=== PATIENT | male | born 1960 | race Caucasian/White ===

== ENCOUNTER 2021-11-12 05:01 | Inpatient (IN) | payer OTHER ==
[~2021-11-12] VITALS: Ht 180.3 cm; Wt 118.8 kg
[2021-11-12 05:25] VITALS: BP 174/87
[2021-11-12] MEDS ORDERED: HEPARIN 25,000UTS/250ML PREMIX 250 ML IV PRN (06:15)
[2021-11-12] MEDS ORDERED: HEPARIN for IV BOLUS 10,000 UNIT/10 ML VIAL. IV PRN (06:15)
[2021-11-12] MEDS ORDERED: FURO40TA4 PO (06:18)
[2021-11-12] MEDS ORDERED: AMLO-187 PO (06:18)
[2021-11-12] MEDS ORDERED: METO-239 PO (06:22)
[2021-11-12] MEDS ORDERED: ACET325T21 PO (06:22)
[2021-11-12] MEDS ORDERED: IBUP-1007 PO (06:22)
[2021-11-12] MEDS ORDERED: ASPI-424 PO (06:22)
[2021-11-12] MEDS ORDERED: ANTI-COAG MONITOR BY PHARMACY. MC PRN (06:45)
[2021-11-12 07:00] VITALS: BP 136/74
[2021-11-12] MEDS ORDERED: ACETAMINOPHEN 325 MG TABLET. PO PRN (09:45)
--- NOTE | 2021-11-12 09:50 | PDOC2 ---
RONALDO RINALDI [employer] POLICE OFFICER 11/12/21 0950: CARDIAC CONSULT DATE OF CONSULT Date of Consult DATE: 11/12/21 TIME: 09:45 REASON FOR CONSULT Reason for Consult: CP, elevated trop REFERRING PHYSICIAN Referring Physician: Dr. Arriola SOURCE Source: Chart review, Patient HISTORY OF PRESENT ILLNESS HISTORY OF PRESENT ILLNESS This is a 60 yo male who initially presented to [facility] secondary to chest heaviness/pressure and shortness of breath. Troponin noted to be elevated at 191 and then 337. Heparin gtt was initiated. Patient was transferred to [facility] for further evaluation and treatment. Patient reports development of tightness/pressure in his central chest yesterday evening around 8pm while he was working in his garage. Was not exerting himself when patient developed. Was associated with shortness of breath and diaphoresis. No dizziness or nausea/vomiting. Pain did not radiated. Symptoms lasted about 15 mins and then improved. Reports he went inside to make dinner and pain returned. Pain again resided without intervention. Pain returned again and was more intense so he decided to come to the ED for further evaluation and treatment. Patient denies experiencing pain similar to this previously. No prior h/o CAD. Patient does reports having COVID PNA last fall reports he hasn't been quite the same since that point. Was initially discharge home from the hospital with oxygen, but not longer requires it. Oxygen saturation is presently 99% on RA. PAST MEDICAL HISTORY Cardiovascular: HTN Pulmonary: COPD, Other (COVID PNA) Musculoskeletal: Osteoarthritis PAST SURGICAL HISTORY Past Surgical History: Appendectomy, Tonsillectomy FAMILY HISTORY Family History: Heart Disease (father ) SOCIAL HISTORY Smoke: No ALCOHOL: none Drugs: None Lives: with Family ALLERGIES ALLERGIES: Coded Allergies: No Known Drug Allergies (Unverified , 11/12/21) ROS Review of System 14 point ROS conducted with pertinent positives noted above in HPI PHYSICAL EXAM General: Alert, Oriented X3, Cooperative, No acute distress HEENT: Atraumatic Lungs: Clear to auscultation Heart: Regular rate Abdomen: Soft, No tenderness Extremities: No edema, Normal pulses Skin: No significant lesion Neuro: Normal speech, Sensation intact Psych/Mental Status: Mental status NL, Mood NL MUSCULOSKELETAL: Osteoarthritic changes both hands VITALS/I&O VITALS/I&O: Vital Signs Date Time Temp Pulse Resp B/P (MAP) Pulse Ox O2 Delivery O2 Flow Rate FiO2 5/9/22 07:50 Room Air 11/12/21 07:00 97.4 71 20 136/74 (94) 97 97.4 ASSESSMENT/PLAN ASSESSMENT/PLAN 1. Chest pain, concerns for UA 2. NSTEMI; trop highest 337. EKG shows ST with nonspecific ST/T changes. on heparin gtt 3. Hypertension; now controlled 4. Obesity Recommendations Trend troponin Continue heparin ASA Lipids Echocardiogram Resume home antiHTN therapy Given symptomatology and risk factors in the setting of NSTEMI, recommend cardiac catheterization with possible PCI. R/b/a discussed with patient and he is agreeable to proceed Keep NPO Will proceed with C this afternoon. FREDRICK MONSON MD 11/12/216: CARDIAC CONSULT ASSESSMENT/PLAN ASSESSMENT/PLAN Patient seen and examined. Agree with PLASTICS AND COMPOSITES INSPECTOR's assessment and plan. NSTEMI - plan for cardiac cath and possible PCI Continue heparin gtt per protocol 2D echo showed normal LVF Thank you for your consultation RONALDO RINALDI APRN November 12, 2021 09:50 FREDRICK MONSON MD November 12, 2021 18:16
--- NOTE | 2021-11-12 10:27 | HP ---
DATE OF SERVICE: 11/12/2021 ADMIT DATE: 11/12/2021 HISTORY OF PRESENT ILLNESS: The patient is a 60-year-old male patient who presented to the Emergency Room with complaint of shortness of breath and chest heaviness. The patient had these feeling intermittently since around dinnertime. He felt like he was short of breath and just could not catch his air. This was accompanied by a pressure sensation in his chest at its worst, it was about 8/10 in severity. By the time he arrived to the Emergency Room, it was 2/10 and he does not feel short of breath. The patient has been having complications from COVID-19 for several months, has significantly decreased exercise tolerance and is unable to work. Today on the day, he arrived to the Emergency Room, he apparently has had about 4 episodes of chest pain that lasted variable length of time associated with shortness of breath. The last one was treated also with severe diaphoresis. It was around 10:30 and his son brought him to the Emergency Room around 11:30. As his symptoms are getting worse, he decided to come to the Emergency Room for further evaluation. He has never had symptoms like this before. He was extensively investigated in the Emergency Room and has had an EKG, which showed that he was in sinus tachycardia with a heart rate of [address] segment elevation. His CT scan of the chest with contrast showed no evidence of pulmonary embolism. There is no thoracic aortic dissection. The great vessels are normal in caliber. She also has no pleural abnormality. The central airways are patent. There are peripheral linear opacities in the bilateral lungs that are nonspecific. His 2 sets of cardiac enzymes showed that his first troponin I high sensitivity was 191 and the second one was 337 and therefore, the patient was transferred to [facility] with non-ST segment elevation myocardial infarction, was started on heparin drip and we did consult the truck headlight assembler for further evaluation and treatment. PAST MEDICAL HISTORY: Significant for hypertension. He had also COVID-19 pneumonia and acute hypoxic respiratory failure in 01/2021 and since then he has exercise intolerance and shortness of breath and has not been able to work since then. He denied any other medical problems. PAST SURGICAL HISTORY: Significant for appendectomy and vasectomy. ALLERGIES: He has no known drug allergies. MEDICATIONS: He is currently on the following medications: He is on metoprolol succinate 25 mg once a day, amlodipine besylate 10 mg once a day, aspirin 81 mg once a day, ibuprofen 600 mg every 6 hours, acetaminophen 650 mg every 6 hours and furosemide 40 mg daily. FAMILY HISTORY: His father at age of 63 because of myocardial infarction. Mother in her 70s because of lung cancer. He has 1 adopted sister. No brothers. SOCIAL HISTORY: He is , has 1 son and 2 daughters. He never smoked, does not drink alcohol or recreational drugs. 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 He has not been able to work since he had COVID last year. REVIEW OF SYSTEMS: As per history of present illness. PHYSICAL EXAMINATION: GENERAL: On arrival to the Emergency Room, he was well-developed, well-nourished, morbidly obese, in no acute distress. There is no pallor, jaundice, cyanosis or thyromegaly. No jugular venous distention. No lower limb edema. VITAL SIGNS: His heart rate on arrival was 115, blood pressure was 160/97, temperature 97.7, respiratory rate was 18 and oxygen saturation was 94% on room air. HEAD, EYES, EARS, NOSE, AND THROAT: Normocephalic, atraumatic. NECK: Supple. HEART: Showed normal first and second heart sounds. No gallop, rub or murmur. CHEST: Clear to auscultation, no crepitation or rhonchi. ABDOMEN: Distended, soft, nontender. NEUROLOGIC: He was alert, oriented x 3 with normal motor and sensory function. His affect, judgment and mood were all normal, anxious. LABORATORY DATA: His lab work showed white cell count of 9.4, hemoglobin 15, hematocrit 45, MCV 82 and platelet count 229,000 with normal manual differential. His chemistry showed a serum sodium 140, potassium 4.1, chloride 102, bicarbonate 29, anion gap of 9, BUN 13, creatinine 1.1. Estimated GFR was 68 mL per minute. His glucose 142, calcium was 9.1. Total bilirubin, AST, ALT, alkaline phosphatase were normal. His troponin I high sensitivity was 191 and second one was 337. Total protein 7.2, albumin was 3.8. His prothrombin time, INR and APTT were normal. His influenza A and B were negative and coronavirus by rapid antigen testing was negative. His chest x-ray showed cardiomediastinal silhouette is normal, lungs are clear. There is no pneumothorax, no pleural effusion is appreciated. No acute bony abnormality. CT angio of the chest showed that the patient's pulmonary arteries are adequately opacified. There is no evidence of pulmonary embolism. There is no thoracic aortic dissection, the great vessels are normal in caliber. Cannot exclude mild coronary artery disease. There is no adenopathy in the chest. The cardiac size normal. No pericardial effusion and there is no pleural abnormality. The central airways are patent. There are peripheral linear opacities in the bilateral lungs, nonspecific atelectasis or infectious inflammatory process are consideration. There is no consolidation and probable fatty infiltration. The visualized liver. No acute bony abnormality. Thoracic spine alignment is maintained. ASSESSMENT AND PLAN: The patient was diagnosed with non-ST segment elevation myocardial infarction and was started on heparin drip and transferred to [facility]. We did consult the Cardiology team for cardiac catheterization and revascularization as deemed necessary. I will reconcile all his medications. Keep him n.p.o. We will check his fasting lipid profile and decide the further management accordingly. LAURA DR: Milton TID: [id number]
[2021-11-12 10:55] LABS: CHOLESTEROL/HDL RATIO 3.2
[2021-11-12] MEDS: ASPIRIN ENTERIC COATED 81 MG TABLET.DR. PO SCH (10:58)
[2021-11-12] MEDS: METOPROLOL SUCC 24HR ER 25 MG TAB.ER.24H. PO SCH (10:58)
[2021-11-12] MEDS: FUROSEMIDE 40 MG TABLET. PO SCH (10:59)
[2021-11-12 11:00] VITALS: BP 152/80
--- NOTE | 2021-11-12 11:00 | NUR ---
Held patients Lasix per Cardiology and patient having a heart cath today.
[2021-11-12 15:00] VITALS: BP 148/72
--- NOTE | 2021-11-12 16:00 | NUR ---
SS following for discharge planning. SS reviewed pt chart and discussed with pt RN. Pt is from home with spouse and is currently on room air. Heparin drip. Cardiology following. Pt having heart cath tomorrow. SS will continue to follow for discharge planning.
--- NOTE | 2021-11-12 16:56 | CARD ---
MR#: [id number] Date of Study: 11/12/2021 Ordering Physician: RONALDO RINALDI, Referring Physician: RONALDO RINALDI, Tech: SUKHJINDER GONZALEZ [facility] APPROVED REPORT EXAM: Two-dimensional and M-mode echocardiogram with Doppler and color Doppler. Other Information Quality : AverageHR: 71bpm Rhythm : NSRTechnically limited study due to body habitus. INDICATION Dyspnea Chest Pain 2D DIMENSIONS RVDd3.2 (2.9-3.5cm)Left Atrium(2D)3.7 (1.6-4.0cm) IVSd1.4 (0.7-1.1cm)Aortic Root(2D)3.3 (2.0-3.7cm) LVDd4.9 (3.9-5.9cm)LVOT Diameter2.4 (1.8-2.4cm) PWd1.3 (0.7-1.1cm)LVDs3.1 (2.5-4.0cm) FS (%) 37.1 %SV74.6 ml LVEF(%)66.9 (>50%) Aortic Valve AoV Peak Vinod.120.2cm/Rachel Peak GR.5.8mmHg LVOT Peak Vinod.106.9cm/sAVA (VMAX)4.00cm2 Mitral Valve MV E Jmcmynkp62.9cm/sMV DECEL [id number] MV A Pwzmvdwr10.4cm/sE/A Ratio0.8 Pulmonary Valve PV Peak Msfzhcgf589.4cm/s Tricuspid Valve TR P. Ykblkihc428fh/sRAP OVBUMYVZ4cxGn TR Peak Gr.88ztFrJXBJ96whNq Pulmonary Vein S1 Gxuzalyl48.7cm/sD2 Ehbwgdkz77.1cm/s PVa ldylfrol840vncv LEFT VENTRICLE The left ventricle is normal size. There is mild to moderate concentric left ventricular hypertrophy. The left ventricular systolic function is normal and the ejection fraction is within normal range.Th e Ejection Fraction is 60-65%. There is normal LV segmental wall motion. Tissue Doppler imaging revea ls abnormal left ventricular diastolic dysfunction. No left ventricle thrombus noted on this study. T here is no ventricular septal defect visualized. There is no left ventricular aneurysm. There is no m ass noted in the left ventricle. RIGHT VENTRICLE The right ventricle is normal size. There is normal right ventricular wall thickness. The right ventr icular systolic function is normal. ATRIA The left atrium size is normal. The right atrium size is normal. The interatrial septum is intact wit h no evidence for an atrial septal defect or patent foramen ovale as noted on 2-D or Doppler imaging. AORTIC VALVE The aortic valve is normal in structure and function. No aortic regurgitation is present. There is no aortic valvular stenosis. There is no aortic valvular vegetation. MITRAL VALVE The mitral valve is normal in structure and function. There is no evidence of mitral valve prolapse. There is no mitral valve stenosis. There is no mitral valve regurgitation noted. TRICUSPID VALVE The tricuspid valve is normal in structure and function. There is no tricuspid valve regurgitation no anneliese. There is no tricuspid valve prolapse or vegetation. There is no tricuspid valve stenosis. PULMONIC VALVE There is no pulmonic valvular regurgitation. There is no pulmonic valvular stenosis. GREAT VESSELS The aortic root is normal in size. The ascending aorta is normal in size. The IVC is normal in size a nd collapses >50% with inspiration. PERICARDIAL EFFUSION There is no pleural effusion. There is no evidence of significant pericardial effusion. Critical Notification Critical Value: No <Conclusion> The left ventricular systolic function is normal and the ejection fraction is within normal range.The Ejection Fraction is 60-65%. There is normal LV segmental wall motion. Technically limited study Signed by : Ousmane Hunt, Electronically Approved : 11/12/2021 16:55:55
[2021-11-12 19:40] VITALS: BP 149/83
[2021-11-12 23:08] VITALS: BP 136/77
[2021-11-13] VITALS (12 sets, daily range): BP systolic 131–160; BP diastolic 72–95
[2021-11-13] MEDS: IV 1/2 NORMAL SALINE 1,000 ML IV SCH ×2 (00:53→10:30)
[2021-11-13 05:57] LABS: HEMATOCRIT 42.1 % (39.0-53.0); HEMOGLOBIN 14.1 g/dL (13.0-17.5); RED BLOOD COUNT 5.17 x10^6/uL (4.30-5.70); RED CELL DISTRIBUTION WIDTH 15.5 % (11.5-14.5); WHITE BLOOD COUNT 6.9 x10^3/uL (4.0-11.0)
[2021-11-13] MEDS: METOPROLOL SUCC 24HR ER 25 MG TAB.ER.24H. PO SCH (08:23)
[2021-11-13] MEDS: FUROSEMIDE 40 MG TABLET. PO SCH (08:23)
[2021-11-13] MEDS: ASPIRIN ENTERIC COATED 81 MG TABLET.DR. PO SCH (08:23)
[2021-11-13] MEDS ORDERED: BIVALIRUDIN 250 MG VIAL. IVP ONE ×3 (08:27→09:25)
--- NOTE | 2021-11-13 08:41 | PDOC ---
MODERATE SEDATION ASSESSMENT RISKS/ALTERNATIVES Risks/Alternatives Risks and alternatives of this type of sedation and procedure discussed with: RISK/ALTERNATIVES: Patient H & P ON CHART H & P H & P on chart and reviewed for co-morbid conditions and appropriate labs. H&P ON CHART: Yes STATUS PREG STATUS ASSESSED: N/A MEDS/ALLERGIES REVIEWED Meds/Allergies Reviewed Medications and Allergies including time and route of recently administered narcotics and sedatives. MEDS/ALLERGIES REVIEWED: Yes ASA RATING ASA RATING: II AIRWAY ASSESSMENT Airway Assessment Airway patency, oral function limitations, presence of caps, crowns, dentures, partials, and ability to extend neck assessed. AIRWAY ASSESSMENT: Yes MALLAMPATI SCORE MALLAMPATI SCORE: II PRE-SEDATION ASSESSMENT PRE-SEDATION ASSESSMENT: Yes FREDRICK MONSON MD November 13, 2021 08:41
[2021-11-13] MEDS ORDERED: LIDOCAINE 1% PF 2 ML VIAL. INJ ONE (09:00)
[2021-11-13] MEDS ORDERED: HEPARIN for IV BOLUS 10,000 UNIT/10 ML VIAL. IART ONE (09:00)
[2021-11-13] MEDS ORDERED: IODIXANOL 320 MG/ML 100 ML VIAL. IART ONE (09:00)
[2021-11-13] MEDS ORDERED: MIDAZOLAM HCL/PF 5 MG/5 ML VIAL. IV ONE (09:00)
[2021-11-13] MEDS ORDERED: diphenhydrAMINE 50 MG/ML VIAL IVP ONE (09:00)
[2021-11-13] MEDS ORDERED: fentaNYL PF VIAL 100 MCG/2 ML VIAL IV ONE (09:00)
[2021-11-13] MEDS ORDERED: VERAPAMIL 5 MG/2 ML VIAL. IART ONE (09:00)
[2021-11-13] MEDS ORDERED: NITROGLYCERIN 200 MCG/2 ML SYRINGE FOR CATH/VASC LAB. IART ONE (09:00)
[2021-11-13] MEDS ORDERED: CONTRAST GIVEN. MC PRN (09:15)
[2021-11-13] MEDS ORDERED: ASPIRIN 325 MG TABLET PO ONE (09:45)
[2021-11-13] MEDS ORDERED: NITROGLYCERIN 200 MCG/2 ML SYRINGE FOR CATH/VASC LAB. ICAR ONE (09:45)
[2021-11-13] MEDS ORDERED: TICAGRELOR 90 MG TABLET. PO ONE (09:45)
[2021-11-13] MEDS ORDERED: NITROGLYCERIN SUBLINGUAL 0.4 MG BOTTLE OF 25. SL PRN (10:00)
--- NOTE | 2021-11-13 12:22 | CARD ---
MR#: [id number] Date of Study: 11/13/2021 Ordering Physician: FREDRICK KRAMER, Referring Physician: FREDRICK KRAMER Tech: RT Jose(R) APPROVED REPORT Technologist: RT Jose(R) Nurse: Gladys Ling RN Procedure(s) performed: 1. Left heart catheterization and selective coronary angiography via right t ransradial approach 2. Successful PCI/drug-eluting stent placement to the left anterior descending artery 3. Successful complex PCI/drug-eluting stent placement to distal RCA/PDA and PTCA to the posterolate ral branch MODERATE SEDATION TIME: 67 MINUTES FLUORO TIME: 21.O MIN DOSE: 164 GYCM2 CONTRAST: 164CC VISI INDICATION The indication(s) include : non-STEMI . [facility] Clinical Frailty Scale [facility] Clinical Frailty Scale: Managing Well Heart Failure Heart Failure: No CASE TECHNIQUE IV conscious sedation was used throughout procedure with appropriate monitoring and was performed in the presence of a registered nurse who was an independent trained observer other than the physician p erforming the procedure. During this case, Fluoroscopy and low osmolar contrast were used for imaging . Specimen(s) Removed: No Estimated Blood loss: 15 cc's. PROCEDURE NARRATIVE After explaining the risks, benefits and alternative options, informed consent was obtained from danielle ent. Patient was brought to the cardiac Head Knitting Machine Fixer and right wrist was prepped and draped in the usual fashion after confirming a positive modified Inderjit's test. Arterial access was obtained in the rig t radial artery and a 6 [place] sheath was inserted. 6 [place] Ronald catheter was used to perform anil ective angiography of the left and right coronary arteries. LVEDP and transaortic gradients were darrick sured. Left ventriculography was not performed since 2D echo this admission showed EF 60 to 65%. FINDINGS 1. Hemodynamics: Elevated left ventricular end-diastolic pressure of 23 mmHg consistent with acute d iastolic heart failure. No pullback gradient across the aortic valve. 2. Coronary angiography: a. The left main coronary artery arose from the left sinus of Valsalva, gave rise to the left anteri or descending and left circumflex arteries and did not show any significant stenosis. b. The left anterior descending artery showed 90% stenosis in the midsegment. c. The left circumflex artery showed 30% stenosis in the proximal segment. d. The right coronary artery was a large and dominant vessel arising from the right sinus of Valsalv a that showed 70 to 80% bifurcation stenosis involving distal RCA and proximal segments of posterior descending and posterolateral branches. INTERVENTION The left main coronary artery was engaged with a 6 [place] Irish XB 3.5 guide catheter. The stenosis in the mid segment of the left anterior descending artery was crossed with a 0.014 inch [employer] Prowater guid ewire. This was predilated with a 3.0 x 15 mm [employer] Emerge balloon following which this was successfully treated with a 4.0 x 20 mm [employer] Promus Elite drug-eluting stent. Follo w-up angiography showed resolution of the stenosis to 0% with REINALDO-3 distal flow. Subsequently, the right coronary artery was engaged with a 6 [place] Irish JR4 guide catheter. The bifurcat ion lesion in the distal segment was crossed into the posterior descending branch with the [employer] Prow ater guidewire. Another 0.014 inch [employer] Prowater guidewire was then used to cross the lesion into t he posterolateral branch. The distal RCA and the proximal segment of the posterolateral branch was p redilated with a 2.5 x 15 mm [employer] Emerge balloon. The same balloon was then used to pre dilate the distal RCA into proximal segment of the posterior descending artery. A 2.5 x 16 mm [employer] Promus Elite drug-eluting stent was then deployed across the distal RCA and the proximal segment of the posterior descending artery. Follow-up angiography showed resolution of the lesion wi th REINALDO-3 distal flow. Patient tolerated the procedure well. Hemostasis was achieved using TR band. There were no immediate complications. Conclusion 1. Severe two-vessel coronary artery disease involving left anterior descending and right coronary a rteries as described above. 2. Successful PCI/drug-eluting stent placement to the left anterior descending artery 3. Successful complex PCI/drug-eluting stent placement to the distal RCA/proximal PDA and PTCA to th e posterolateral branch Recommendations 1. Aspirin 325 mg daily for 1 month followed by 81 mg daily 2. Ticagrelor 90 mg twice daily 3. Cardiovascular risk factor modification Signed by : Fredrick Kramer, Electronically Approved : 11/13/2021 10:06:45
--- NOTE | 2021-11-13 12:22 | PN ---
DATE: 11/13/2021 SUBJECTIVE: The patient was admitted yesterday with chest pain and non-ST segment elevation myocardial infarction. His troponin I high sensitivity has steadily risen, was seen by the Cardiology team and he is scheduled for cardiac catheterization this morning. He was continued on heparin drip and all his other medication. Nursing staff did not voice any concerns that he had an uneventful night. PHYSICAL EXAMINATION: GENERAL: When I saw him this morning, he was resting flat, comfortably in bed, in no apparent respiratory distress. No pallor, jaundice, cyanosis or thyromegaly. No jugular venous distention. No lower limb edema. VITAL SIGNS: His heart rate was 66, blood pressure is 131/72, temperature 98.7, respiratory rate was 18 and oxygen saturation was 95% on room air. The rest of clinical exam stable. LABORATORY DATA: His fasting lipid profile showed serum triglycerides to be 64. Total cholesterol 128, LDL was 75, VLDL was 13 and HDL cholesterol of 40. Total cholesterol to HDL cholesterol ratio 3.21. TSH was normal at 4.7. White cell count was 6.9, hemoglobin 14, hematocrit 42, MCV 81 and platelet count 230,000. ASSESSMENT: In summary, this is a 60-year-old male patient who was admitted with a non-ST segment elevation myocardial infarction for which he is started on heparin. He is scheduled for cardiac catheterization today. Other medical problems include: 1. Hypertension. 2. Chronic hypoxic respiratory failure. 3. Post-COVID syndrome. PLAN: To obviously continue with all current medications. Await the result of the cardiac catheterization. LAURA DR: Milton TID: [id number]
--- NOTE | 2021-11-13 16:21 | NUR ---
SS following up with discharge planning. SS reviewed pt chart and discussed with pt RN. Pt is currently on room air. Cardiology following. Pt had heart cath today with two interventions. SS will continue to follow for discharge planning.
[2021-11-13] MEDS ORDERED: ATORVASTATIN CALCIUM 20 MG TABLET PO SCH (21:00)
[2021-11-14 03:50] VITALS: BP 135/84
[2021-11-14 07:00] VITALS: BP 163/81
[2021-11-14] MEDS: METOPROLOL SUCC 24HR ER 25 MG TAB.ER.24H. PO SCH (08:00)
[2021-11-14] MEDS: FUROSEMIDE 40 MG TABLET. PO SCH (08:01)
--- NOTE | 2021-11-14 08:01 | NUR ---
FALGUNI HELD AT THIS TIME PER DR GUY'S INSTRUCTION.
[2021-11-14] MEDS ORDERED: ASPI325T8 PO (08:05)
[2021-11-14] MEDS ORDERED: ATOR40TA59 PO (08:05)
[2021-11-14] MEDS ORDERED: ASPIRIN ENTERIC COATED 81 MG TABLET.DR. PO SCH (09:00)
[2021-11-14] MEDS ORDERED: TICAGRELOR 90 MG TABLET. PO SCH (09:00)
[2021-11-14 09:05] LABS: CALCIUM 8.6 mg/dL (8.5-10.1); CREATININE 1.1 mg/dL (0.7-1.3); GFR 68.3; POTASSIUM 4.2 mmol/L (3.5-5.1)
[2021-11-14 09:16] LABS: ALBUMIN 3.6 g/dL (3.4-5.0); ALBUMIN/GLOBULIN RATIO 0.9 (1.0-1.7); TOTAL PROTEIN 7.4 g/dL (6.4-8.2)
--- NOTE | 2021-11-14 10:51 | PDOC ---
RONALDO RINALDI SENIOR COBOL DEVELOPER 11/14/21 1051: CARDIO Progress Notes Date and Time Date of Service 11/14/21 Time of Evaluation 1041 Subjective Subjective: No Chest Pain, No shortness of breath, No Palpitations, No Dizziness Vitals Vitals Vital Signs Date Time Temp Pulse Resp B/P (MAP) Pulse Ox O2 Delivery O2 Flow Rate FiO2 11/14/21 08:00 Room Air 11/14/21 08:00 71 135/84 11/14/21 07:00 97.7 16 98 97.7 11/13/21 10:20 2.0 Weight Weight [ ] Input and Output Intake and Output Intake and Output 11/14/21 07:00 Intake Total 860 ml Output Total 1900 ml Balance -1040 ml Intake Oral 360 ml IV Total 500 ml Output Urine Total 1900 ml # Voids 1 Laboratory Labs Laboratory Tests Test 11/14/21 08:31 Sodium Level 137 mmol/L (136-145) Potassium Level 4.2 mmol/L (3.5-5.1) Chloride Level 100 mmol/L (98-107) Carbon Dioxide Level 27 mmol/L (21-32) Anion Gap 10 (6-14) Blood Urea Nitrogen 14 mg/dL (8-26) Creatinine 1.1 mg/dL (0.7-1.3) Estimated GFR (Cockcroft-Gault) 68.3 BUN/Creatinine Ratio 13 (6-20) Glucose Level 151 mg/dL (70-99) Calcium Level 8.6 mg/dL (8.5-10.1) Total Bilirubin 1.0 mg/dL (0.2-1.0) Aspartate Amino Transf (AST/SGOT) 27 U/L (15-37) Alanine Aminotransferase (ALT/SGPT) 36 U/L (16-63) Alkaline Phosphatase 81 U/L (46-116) Total Protein 7.4 g/dL (6.4-8.2) Albumin 3.6 g/dL (3.4-5.0) Albumin/Globulin Ratio 0.9 (1.0-1.7) Physical Exam HEENT: Neck Supple W Full Motion Chest: Symmetric LUNGS: Clear to Auscultation Heart: RRR Abdomen: Soft N/T Extremities: No Edema, Other (right radial arteriotomy site soft, clean, and dry. No hematoma present. Neurovascular status intact. ) Neurology: alert, oriented, follow commands Assessment Assessment 1. Chest pain, concerns for UA 2. NSTEMI; trop highest 337. EKG shows ST with nonspecific ST/T changes. Echo with preserved LV systolic function 3. CAD; [facility] with severe two-vessel CAD involving the LAD and RCA. s/p successful PCI/KELIN to the LAD, PCI/KELIN to the distal RCA/proximal PDA, and PTCA to the posterolateral branch 4. Hypertension; now controlled 5. Obesity Recommendations Secondary prevention including DAPT with Brilinta and ASA therapy (ASA 325mg x1 month then 81mg thereafter) High dose statin Risk stratification modification Cardiac rehab referral Follow up in our [place] office with Dr. Kramer as scheduled Justicifation of Admission Dx: Justifications for Admission: Justification of Admission Dx: Yes MO: Acute NSTEMI Comments: CAD s/p PCI/stent placement FREDRICK KRAMER MD 11/14/21 1630: CARDIO Progress Notes Assessment Assessment Patient seen and examined. Agree with FOLDED TOWEL MACHINE OPERATOR's assessment and plan. Non-STEMI s/p PCI/KELIN to LAD, PCI/KELIN to distal RCA/PDA and PTCA to PLB, presently stable and chest pain-free Telemetry did not show any significant arrhythmias Continue dual antiplatelet therapy Follow-up as scheduled RONALDO RINALDI APRN November 14, 2021 10:51 FREDRICK KRAMER MD November 14, 2021 16:30
[2021-11-14 11:00] VITALS: BP 157/86
[2021-11-14] MEDS ORDERED: TICA90TA PO (12:16)
--- NOTE | 2021-11-14 13:45 | NUR ---
DISCHARGE PIV ET TELE DISCONTINED. MEDICATIONS, FOLLOW UP INSTRUCTIONS AND POST-CATH INFORMATION REVIEWED WITH PATIENT. LOW SODIUM AND LOW FAT/CHOLESTEROL DIET INFORMATION PROVIDED TO PATIENT AT HIS REQUEST. ALL QUESTIONS ANSWERED TO PT SATISFACTION. ESCORTED TO FRONT ENTRANCE BY WHEELCHAIR FOR TRANSPORT HOME VIA PRIVATE VEHICLE.
== END 2021-11-14 13:45 | disposition home or self-care (01) | DRG 246 ==
LOC: 6 SOUTH 05:01
PROVIDERS: ADMIT Internal Medicine; ATTEND Internal Medicine
PROC: 027236Z Dilation of Coronary Artery, Three Arteries with Three Drug-eluting Intraluminal Devices, Percutaneous Approach (ICD-10-PCS; principal; 2021-11-13)
PROC: 4A023N7 Measurement of Cardiac Sampling and Pressure, Left Heart, Percutaneous Approach (ICD-10-PCS; 2021-11-13)
PROC: B211YZZ Fluoroscopy of Multiple Coronary Arteries using Other Contrast (ICD-10-PCS; 2021-11-13)
DX: I21.4 Non-ST elevation (NSTEMI) myocardial infarction (principal); J96.01 Acute respiratory failure with hypoxia; I50.31 Acute diastolic (congestive) heart failure; E66.9 Obesity, unspecified; I25.10 Atherosclerotic heart disease of native coronary artery without angina pectoris; J44.9 Chronic obstructive pulmonary disease, unspecified; Z63.4 Disappearance and death of family member; Z80.1 Family history of malignant neoplasm of trachea, bronchus and lung; Z82.49 Family history of ischemic heart disease and other diseases of the circulatory system; Z87.01 Personal history of pneumonia (recurrent); M19.90 Unspecified osteoarthritis, unspecified site; Z68.36 Body mass index [BMI] 36.0-36.9, adult; Z90.49 Acquired absence of other specified parts of digestive tract; I11.0 Hypertensive heart disease with heart failure
CPT/HCPCS: 36415; 80053; 80061; 84443; 84484; 85027; 85520; 92921; 92928; 93306; 93458; 99152; 99153; C1769; C1894; J0583; J1200; J1644; J2250; J3010; J3490; Q9967; C1725; C1874; C8929; C9600; G0378